=== PATIENT | female | born 1970 | race Caucasian/White ===

== ENCOUNTER 2017-05-31 16:29 | Emergency (ER) | payer OTHER ==
[~2017-05-31] VITALS: Ht 162.6 cm; Wt 101.2 kg
[2017-05-31 16:38] VITALS: BP 152/88
--- NOTE | 2017-05-31 16:48 | NUR ---
Patient ambulated to bed 12. RN evaluating patient at bedside.
--- NOTE | 2017-05-31 17:02 | NUR ---
46/F PRESENT TO ER C/O VOMITING x 2-3 MONTHS. PT STATES SHE HAD HERNIA SURGERY 3 MONTHS AGO. PT HAS N/V BUT DENIES DIARRHEA. PAIN 10/10 ACHING ON HERNIA SURGERY. PT STATES SHE HAS HX OF BIPOLAR DISORDER. AAOx4, PERRLA, BREATHING EVEN AND UNLABORED. ERMD NOTIFIED OF PATIENT STATUS.
[2017-05-31] MEDS ORDERED: PANTOPRAZOLE 40 MG INJ VIAL IVP ONE (17:40)
[2017-05-31] MEDS ORDERED: NACL 0.9% 1,000 ML IV SCH (17:40)
[2017-05-31] MEDS ORDERED: ONDANSETRON 4 MG/2 ML VIAL IVP ONE (17:40)
[2017-05-31 18:13] LABS: ANION GAP 15.5 (8-16); CARBON DIOXIDE 24.2 mmol/L (21-32); POTASSIUM 3.7 mmol/L (3.5-5.1)
[2017-05-31 18:16] LABS: BASOPHILS # (AUTO) 0.5 K/uL (0.00-0.22); EOSINOPHILS # (AUTO) 0.5 K/uL (0-0.4); HEMATOCRIT 36.1 % (36-48); HEMOGLOBIN 11.8 g/dL (12.0-16.0); LYMPHOCYTES # (AUTO) 2.6 K/uL (2.5-16.5); MEAN CORPUSCULAR HEMOGLOBIN 28 pg (27-31); MEAN CORPUSCULAR HGB CONC 33 g/dL (33-37); MEAN CORPUSCULAR VOLUME 85 fL (80-94); MONOCYTES # (AUTO) 0.5 K/uL (0.8-1.0); NEUTROPHILS # (AUTO) 6.5 K/uL (1.8-7.7); PLATELET COUNT (AUTO) 379 K/uL (140-450); RED BLOOD CELL COUNT(AUTO) 4.26 MIL/uL (4.20-5.40); RED CELL DISTRIBUTION WIDTH 15.1 % (11.6-13.7); WHITE BLOOD COUNT (AUTO) 10.6 K/uL (4.8-10.8)
[2017-05-31 18:19] LABS: ALBUMIN 3.6 g/dL (3.4-5.0); TOTAL BILIRUBIN 0.2 mg/dL (0.0-1.0)
--- NOTE | 2017-05-31 18:19 | NUR ---
Ultrasound at bedside.
[2017-05-31 18:37] LABS: APPEARANCE,URINE CLEAR (CLEAR); BILIRUBIN,URINE NEGATIVE (NEGATIVE); BLOOD, URINE NEGATIVE (NEGATIVE); COLOR,URINE YELLOW (YELLOW); LEUKOCYTE ESTERASE ,URINE NEGATIVE (NEGATIVE); NITRITE, URINE NEGATIVE (NEGATIVE); UGLUCOSE NEGATIVE (NEGATIVE)
--- NOTE | 2017-05-31 19:00 | NUR ---
ENDING TIME FOR 0.9 NS, 1000 ML IS 1900.
--- NOTE | 2017-05-31 19:06 | NUR ---
Pt report given to FEDERICO ATWOOD. Transfer of care at this time.
--- NOTE | 2017-05-31 19:14 | NUR ---
PT RESTING IN BED, VSS. DR POZO SPEAKING TO PT AT BEDSIDE.
[2017-05-31 19:42] VITALS: BP 125/72
--- NOTE | 2017-05-31 19:42 | NUR ---
Patient discharged with v/s stable. Written and verbal after care instructions given and explained. Patient alert, oriented and verbalized understanding of instructions. Ambulatory with steady gait. All questions addressed prior to discharge. ID band removed. Patient advised to follow up with PMD OR RETURN TO ER IF CONDITION WORSEN . Rx of OMEPRAZOLE,AND ZOFRAN given. Patient educated on indication of medication including possible reaction and side effects. Opportunity to ask questions provided and answered.
== END 2017-05-31 19:42 | disposition home or self-care (01) ==
LOC: MED 16:29
DX: K29.70 Gastritis, unspecified, without bleeding (principal); K80.20 Calculus of gallbladder without cholecystitis without obstruction; R03.0 Elevated blood-pressure reading, without diagnosis of hypertension; J45.909 Unspecified asthma, uncomplicated; K21.9 Gastro-esophageal reflux disease without esophagitis; F31.9 Bipolar disorder, unspecified
CPT/HCPCS: 36415; 76700; 80053; 81003; 81025; 83690; 85025; 93005; 96361; 96374; 96375; 99285; C9113; J2405; Q0092

== ENCOUNTER 2017-09-14 13:36 | Emergency (ER) | payer OTHER ==
[~2017-09-14] VITALS: Ht 165.1 cm; Wt 99.8 kg
[2017-09-14 13:57] VITALS: BP 128/84
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
[2017-09-14 15:17] VITALS: BP 132/86
--- NOTE | 2017-09-14 15:17 | NUR ---
Patient discharged with v/s stable. Written and verbal after care instructions given and explained. Patient alert, oriented and verbalized understanding of instructions. Ambulatory with steady gait. All questions addressed prior to discharge. ID band removed. Patient advised to follow up with PMD. Rx of Flonase, Ibuprofen, Amoxicillin, and Zyrtec given. Patient educated on indication of medication including possible reaction and side effects. Opportunity to ask questions provided and answered.
== END 2017-09-14 15:17 | disposition home or self-care (01) ==
LOC: MED 13:36
DX: J01.90 Acute sinusitis, unspecified (principal); J32.9 Chronic sinusitis, unspecified; R51 Headache; J45.909 Unspecified asthma, uncomplicated; K21.9 Gastro-esophageal reflux disease without esophagitis; Z88.5 Allergy status to narcotic agent
CPT/HCPCS: 99283

== ENCOUNTER 2018-09-16 12:50 | Emergency (ER) | payer OTHER ==
[~2018-09-16] VITALS: Ht 162.6 cm; Wt 89.8 kg
[2018-09-16 13:05] VITALS: BP 128/75
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
--- NOTE | 2018-09-16 14:54 | NUR ---
dr veloz at bedside
--- NOTE | 2018-09-16 15:00 | NUR ---
pt being taken to rad
--- NOTE | 2018-09-16 15:04 | NUR ---
pt back from rad
--- NOTE | 2018-09-16 16:08 | NUR ---
Patient discharged with v/s stable. Written and verbal after care instructions given and explained. Patient alert, oriented and verbalized understanding of instructions. Ambulatory with steady gait. All questions addressed prior to discharge. ID band removed. Patient advised to follow up with PMD. Rx of NAPROSYN,PREDNISONE, TESSALON PERLES given. Patient educated on indication of medication including possible reaction and side effects. Opportunity to ask questions provided and answered.
[2018-09-16 16:09] VITALS: BP 128/83
== END 2018-09-16 16:08 | disposition home or self-care (01) ==
LOC: MED 12:50
DX: J45.909 Unspecified asthma, uncomplicated (principal); R11.10 Vomiting, unspecified; I10 Essential (primary) hypertension; K21.9 Gastro-esophageal reflux disease without esophagitis; F31.9 Bipolar disorder, unspecified; Z90.89 Acquired absence of other organs; Z88.5 Allergy status to narcotic agent
CPT/HCPCS: 71046; 99283

== ENCOUNTER 2018-11-07 09:49 | Emergency (ER) | payer OTHER ==
[~2018-11-07] VITALS: Ht 163.8 cm; Wt 92.5 kg
[2018-11-07 09:53] VITALS: BP 137/69
--- NOTE | 2018-11-07 09:58 | NUR ---
Patient ambulated to bed 7. RN evaluating patient at bedside.
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
--- NOTE | 2018-11-07 10:16 | NUR ---
Dr. Brown evaluating patient at bedside.
[2018-11-07] MEDS ORDERED: KETOROLAC 60 MG/2 ML VIAL IM ONE (10:25)
[2018-11-07] MEDS ORDERED: LACTULOSE 20 GM/30 ML UDC PO ONE (10:25)
[2018-11-07 12:00] VITALS: BP 137/69
--- NOTE | 2018-11-07 12:00 | NUR ---
Patient discharged with v/s stable. Written and verbal after care instructions given and explained. Patient alert, oriented and verbalized understanding of instructions. Ambulatory with steady gait. All questions addressed prior to discharge. ID band removed. Patient advised to follow up with PMD. Rx of Colace given. Patient educated on indication of medication including possible reaction and side effects. Opportunity to ask questions provided and answered.
== END 2018-11-07 12:00 | disposition home or self-care (01) ==
LOC: MED 09:49
DX: G89.18 Other acute postprocedural pain (principal); R10.9 Unspecified abdominal pain; J45.909 Unspecified asthma, uncomplicated; K21.9 Gastro-esophageal reflux disease without esophagitis; I10 Essential (primary) hypertension; Z88.5 Allergy status to narcotic agent
CPT/HCPCS: 96372; 99283; J1885

== ENCOUNTER 2019-02-05 19:07 | Emergency (ER) | payer OTHER ==
[~2019-02-05] VITALS: Ht 162.6 cm; Wt 88.5 kg
[2019-02-05 19:20] VITALS: BP 148/80
--- NOTE | 2019-02-05 19:20 | NUR ---
PT TAKEN TO BED 4
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
--- NOTE | 2019-02-05 20:25 | NUR ---
PT TAKEN TO CT VIA [facility].
--- NOTE | 2019-02-05 20:37 | NUR ---
PT RETURN FROM CT
--- NOTE | 2019-02-05 20:40 | NUR ---
PT AMBULATED TO WITH SLOW, STEADY GAIT.
[2019-02-05] MEDS ORDERED: KETOROLAC 60 MG/2 ML VIAL IM ONE (21:15)
[2019-02-05 21:49] VITALS: BP 128/80
== END 2019-02-05 21:49 | disposition home or self-care (01) ==
LOC: MED 19:07
DX: R51 Headache (principal); M54.2 Cervicalgia; I10 Essential (primary) hypertension; K21.9 Gastro-esophageal reflux disease without esophagitis; J45.909 Unspecified asthma, uncomplicated; F31.9 Bipolar disorder, unspecified; Z88.5 Allergy status to narcotic agent
CPT/HCPCS: 70450; 96372; 99284; J1885

== ENCOUNTER 2019-08-18 16:07 | Emergency (ER) | payer OTHER ==
[~2019-08-18] VITALS: Ht 162.6 cm; Wt 92.1 kg
[2019-08-18 16:16] VITALS: BP 137/81
[2019-08-18 17:28] LABS: BASOPHILS # (AUTO) 0.1 K/uL (0.00-0.22); BASOPHILS % (AUTO) 0.4 % (0.0-2.0); EOSINOPHILS # (AUTO) 0.1 K/uL (0-0.4); EOSINOPHILS % (AUTO) 0.5 % (0.0-4.0); HEMOGLOBIN 12.9 g/dL (12.0-16.0); LYMPHOCYTES # (AUTO) 3.8 K/uL (2.5-16.5); LYMPHOCYTES % (AUTO) 24.5 % (20.5-51.1); MEAN CORPUSCULAR HEMOGLOBIN 31 pg (27-31); MEAN CORPUSCULAR HGB CONC 33 g/dL (33-37); MONOCYTES # (AUTO) 1.6 K/uL (0.8-1.0); MONOCYTES % (AUTO) 10.2 % (1.7-9.3); NEUTROPHILS # (AUTO) 10.1 K/uL (1.8-7.7); NEUTROPHILS % (AUTO) 64.4 % (42.2-75.2); PLATELET COUNT (AUTO) 374 K/uL (140-450); RED BLOOD CELL COUNT(AUTO) 4.14 MIL/uL (4.20-5.40); RED CELL DISTRIBUTION WIDTH 14.3 % (11.6-13.7); WHITE BLOOD COUNT (AUTO) 15.6 K/uL (4.8-10.8)
[2019-08-18 17:28] LABS: APPEARANCE,URINE CLEAR (CLEAR); BILIRUBIN,URINE NEGATIVE (NEGATIVE); BLOOD, URINE NEGATIVE (NEGATIVE); COLOR,URINE YELLOW (YELLOW); LEUKOCYTE ESTERASE ,URINE NEGATIVE (NEGATIVE); NITRITE, URINE NEGATIVE (NEGATIVE); PH,URINE 6.5 (5.0-9.0); UGLUCOSE NEGATIVE (NEGATIVE)
[2019-08-18 17:46] LABS: ALBUMIN 3.8 g/dL (3.4-5.0); ANION GAP 11.8 (8-16); CARBON DIOXIDE 26.9 mmol/L (21-32); CREATININE 0.9 mg/dL (0.6-1.3); POTASSIUM 3.7 mmol/L (3.5-5.1); TOTAL BILIRUBIN 0.2 mg/dL (0.0-1.0)
[2019-08-18 19:00] VITALS: BP 138/74
--- NOTE | 2019-08-18 19:01 | NUR ---
Stable. VSS. Afebrile. Denies pain MD has reassessed and Dc'd home. To exit.
== END 2019-08-18 19:00 | disposition home or self-care (01) ==
LOC: MED 16:07
DX: N30.90 Cystitis, unspecified without hematuria (principal); M54.9 Dorsalgia, unspecified; R05 Cough; J45.909 Unspecified asthma, uncomplicated; K21.9 Gastro-esophageal reflux disease without esophagitis; I10 Essential (primary) hypertension; Z98.890 Other specified postprocedural states; Z88.5 Allergy status to narcotic agent
CPT/HCPCS: 36415; 80053; 81003; 85025; 99284

== ENCOUNTER 2020-05-15 19:46 | Emergency (ER) | payer OTHER ==
[~2020-05-15] VITALS: Ht 162.6 cm; Wt 90.3 kg
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
[2020-05-15 19:47] VITALS: BP 127/72
--- NOTE | 2020-05-15 19:47 | NUR ---
1935 --- MALATHI, PT TAKEN TO ER BED 11
--- NOTE | 2020-05-15 20:02 | NUR ---
ERMD AT BEDSIDE FOR MEDICAL EVALUATION.
--- NOTE | 2020-05-15 20:40 | NUR ---
Female Lean Specialist accompanied female patient for pelvic exam performed by VERO Olson.
--- NOTE | 2020-05-15 21:36 | NUR ---
Pt called her sister Jenae and left a message for her to pick her up from the hospital.
--- NOTE | 2020-05-15 21:41 | NUR ---
Pt on the phone with sister, to come pick her up from the hospital.
[2020-05-15 21:53] VITALS: BP 130/84
--- NOTE | 2020-05-15 21:53 | NUR ---
Patient discharged with v/s stable. Written and verbal after care instructions given and explained. Patient verbalized understanding. Ambulatory with steady gait. All questions addressed prior to discharge. Advised to follow up with PMD.
== END 2020-05-15 21:53 | disposition home or self-care (01) ==
LOC: MED 19:46
DX: F41.9 Anxiety disorder, unspecified (principal); R10.2 Pelvic and perineal pain; J45.909 Unspecified asthma, uncomplicated; F25.0 Schizoaffective disorder, bipolar type; Z88.5 Allergy status to narcotic agent
CPT/HCPCS: 93005; 99283; 99284

== ENCOUNTER 2021-07-30 16:26 | Emergency (ER) | payer OTHER ==
[~2021-07-30] VITALS: Ht 162.6 cm; Wt 90.7 kg
[2021-07-30 16:40] VITALS: BP 130/83
[2021-07-30] MEDS ORDERED: [UNRECOGNIZED DRUG - OTHER] (18:20)
[2021-07-30] MEDS ORDERED: GUAI-646 PO (18:20)
--- NOTE | 2021-07-30 19:43 | NUR ---
drake serna collected and handed to greenhouse laborer bedside
--- NOTE | 2021-07-30 19:44 | NUR ---
Patient discharged with v/s stable. Written and verbal after care instructions given and explained. Patient alert, oriented and verbalized understanding of instructions. Ambulatory with steady gait. All questions addressed prior to discharge. ID band removed. Patient advised to follow up with PMD. Rx of mucinex given. Patient educated on indication of medication including possible reaction and side effects. Opportunity to ask questions provided and answered.
== END 2021-07-30 19:44 | disposition home or self-care (01) ==
LOC: MED 16:26
DX: B34.9 Viral infection, unspecified (principal); Z20.822 Contact with and (suspected) exposure to COVID-19; J45.909 Unspecified asthma, uncomplicated; Z79.899 Other long term (current) drug therapy
CPT/HCPCS: 71045; 99284; U0003

== ENCOUNTER 2022-01-08 07:13 | Emergency (ER) | payer OTHER ==
[~2022-01-08] VITALS: Ht 165.1 cm; Wt 103.4 kg
[~2022-01-08 07:13] MED LIST: MUC600 PO; [UNRECOGNIZED DRUG - OTHER]
[2022-01-08 07:24] VITALS: BP 125/75
--- NOTE | 2022-01-08 07:31 | NUR ---
PT AMBULATED TO BED 11, STEADY GAIT WITH USE OF A CANE.
[2022-01-08] MEDS ORDERED: KETOROLAC 30 MG/ML VIAL IM ONE (08:00)
[2022-01-08] MEDS ORDERED: ROB PO (08:00)
--- NOTE | 2022-01-08 08:04 | NUR ---
pt c/o back pain x3 days, denies injury or trauma. also c/o dry cough. breathing unlabored. speaking in complete sentences.
--- NOTE | 2022-01-08 08:31 | NUR ---
Patient discharged with v/s stable. Written and verbal after care instructions given and explained. Patient alert, oriented and verbalized understanding of instructions. Ambulatory with steady gait. All questions addressed prior to discharge. ID band removed. Patient advised to follow up with PMD. Rx of robutussin given. Patient educated on indication of medication including possible reaction and side effects. Opportunity to ask questions provided and answered.
== END 2022-01-08 08:32 | disposition home or self-care (01) ==
LOC: MED 07:13
DX: B34.9 Viral infection, unspecified (principal); Z20.822 Contact with and (suspected) exposure to COVID-19; M54.50 Low back pain, unspecified; I10 Essential (primary) hypertension; E78.5 Hyperlipidemia, unspecified
CPT/HCPCS: 87635; 96372; 99283; C9803; J1885

== ENCOUNTER 2023-01-17 10:00 | Emergency (ER) | payer MEDICARE, MEDICAID ==
[~2023-01-17] VITALS: Ht 162.6 cm; Wt 89.4 kg
[~2023-01-17 10:00] MED LIST changes: +ROB PO
[2023-01-17 10:16] VITALS: BP 126/76; PULSE 82; RESP 20; TEMP 97.8; O2SAT 99
[2023-01-17] MEDS ORDERED: KETOROLAC 30 MG/ML VIAL IM ONE (10:55)
--- NOTE | 2023-01-17 11:43 | NUR ---
PT AMB TO BED 3
--- NOTE | 2023-01-17 11:55 | NUR ---
Female Street And Building Decorator accompanied female patient for BREAST Exam.
[2023-01-17 11:56] VITALS: O2SAT 99
[2023-01-17] MEDS ORDERED: IBUP-2213 PO (12:08)
[2023-01-17] MEDS ORDERED: CYCL-711 PO (12:08)
[2023-01-17] MEDS ORDERED: LID5T TP (12:08)
[2023-01-17] MEDS ORDERED: HYDR28CR38 TP (12:10)
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
[2023-01-17 12:29] VITALS: BP 125/76; PULSE 80; RESP 20; TEMP 98; O2SAT 100
--- NOTE | 2023-01-17 12:30 | NUR ---
The patient's care was reviewed and supervised by Roselyn Reyes, RN, RN.
== END 2023-01-17 12:28 | disposition home or self-care (01) ==
LOC: MED 10:00
DX: S29.011A Strain of muscle and tendon of front wall of thorax, initial encounter (principal); R03.0 Elevated blood-pressure reading, without diagnosis of hypertension; J45.909 Unspecified asthma, uncomplicated; Z79.899 Other long term (current) drug therapy; X58.XXXA Exposure to other specified factors, initial encounter; Y93.89 Activity, other specified; Y92.89 Other specified places as the place of occurrence of the external cause; Y99.8 Other external cause status
CPT/HCPCS: 71101; 81002; 81025; 96372; 99283; J1885

== ENCOUNTER 2023-02-06 07:15 | Emergency (ER) | payer MEDICARE, MEDICAID ==
[~2023-02-06] VITALS: Ht 162.6 cm; Wt 89.4 kg
[~2023-02-06 07:15] MED LIST changes: +CYCL-711 PO; +HYDR28CR38 TP; +IBUP-2213 PO; +LID5T TP
[2023-02-06 07:47] VITALS: BP 122/72; PULSE 77; RESP 20; TEMP 98; O2SAT 99
--- NOTE | 2023-02-06 07:57 | NUR ---
TO ER BED 5
--- NOTE | 2023-02-06 08:03 | NUR ---
Patient being evaluated by physician at bedside.
[2023-02-06] MEDS ORDERED: KETOROLAC 30 MG/ML VIAL IM ONE (08:10)
--- NOTE | 2023-02-06 08:47 | NUR ---
Patient being taken to X-Ray via imaging.
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
--- NOTE | 2023-02-06 09:11 | NUR ---
Patient returned from imaging.
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
[2023-02-06] MEDS ORDERED: IBUP-2213 PO (09:35)
--- NOTE | 2023-02-06 09:45 | NUR ---
The patient's care was reviewed and supervised by THOMPSON CRENSHAW RN.
--- NOTE | 2023-02-06 09:54 | NUR ---
Patient discharged with v/s stable. Written and verbal after care instructions given and explained. Patient alert, oriented and verbalized understanding of instructions. Ambulatory with steady gait. All questions addressed prior to discharge. ID band removed. Patient advised to follow up with PMD. Rx of IBUPROFEN given. Opportunity to ask questions provided and answered.
== END 2023-02-06 09:54 | disposition home or self-care (01) ==
LOC: MED 07:15
DX: S39.012A Strain of muscle, fascia and tendon of lower back, initial encounter (principal); M25.551 Pain in right hip; J45.909 Unspecified asthma, uncomplicated; Z88.5 Allergy status to narcotic agent; Z88.8 Allergy status to other drugs, medicaments and biological substances; Z79.899 Other long term (current) drug therapy; X58.XXXA Exposure to other specified factors, initial encounter; Y93.89 Activity, other specified; Y92.89 Other specified places as the place of occurrence of the external cause; Y99.8 Other external cause status
CPT/HCPCS: 72170; 72220; 96372; 99284; J1885

== ENCOUNTER 2023-02-25 15:53 | Emergency (ER) | payer MEDICARE, MEDICAID ==
[~2023-02-25] VITALS: Ht 165.1 cm; Wt 89.4 kg
[2023-02-25 16:02] VITALS: BP 119/79; PULSE 101; RESP 18; TEMP 98.9; O2SAT 99
[2023-02-25] MEDS: KETOROLAC 30 MG/ML VIAL IM ONE (17:40)
[2023-02-25] MEDS: ACETAMINOPHEN EXTRA STRENGTH 500 MG TAB PO ONE (17:40)
[2023-02-25] MEDS ORDERED: ACET-8905 PO (19:23)
== END 2023-02-25 19:40 | disposition home or self-care (01) ==
LOC: MED 15:53
DX: S92.511A Displaced fracture of proximal phalanx of right lesser toe(s), initial encounter for closed fracture (principal); J45.909 Unspecified asthma, uncomplicated; Z79.899 Other long term (current) drug therapy; Z79.1 Long term (current) use of non-steroidal anti-inflammatories (NSAID); Z88.8 Allergy status to other drugs, medicaments and biological substances; Z88.5 Allergy status to narcotic agent; W22.8XXA Striking against or struck by other objects, initial encounter; Y92.009 Unspecified place in unspecified non-institutional (private) residence as the place of occurrence of the external cause; Y93.01 Activity, walking, marching and hiking; Y99.8 Other external cause status
CPT/HCPCS: 73660; 96372; 99283; J1885

== ENCOUNTER 2023-03-02 13:40 | Emergency (ER) | payer MEDICARE, MEDICAID ==
[~2023-03-02] VITALS: Ht 170.2 cm; Wt 83.9 kg
[~2023-03-02 13:40] MED LIST changes: +ACET-8905 PO
[2023-03-02 13:53] VITALS: BP 132/89; PULSE 98; RESP 17; TEMP 97.4; O2SAT 98
[2023-03-02] MEDS ORDERED: ACYC400T14 PO (16:18)
[2023-03-02] MEDS ORDERED: KETO2CRE3 TP (16:18)
[2023-03-02 16:56] LABS: APPEARANCE,URINE CLEAR (CLEAR); BILIRUBIN,URINE NEGATIVE (NEGATIVE); BLOOD, URINE NEGATIVE (NEGATIVE); COLOR,URINE YELLOW (YELLOW); LEUKOCYTE ESTERASE ,URINE NEGATIVE (NEGATIVE); NITRITE, URINE NEGATIVE (NEGATIVE); PROTEIN,URINE NEGATIVE (NEGATIVE); UGLUCOSE NEGATIVE (NEGATIVE); UROBILINOGEN,URINE 0.2 EU/dL (0.2 - 1)
== END 2023-03-02 16:50 | disposition home or self-care (01) ==
LOC: MED 13:40
DX: R10.2 Pelvic and perineal pain (principal); J45.909 Unspecified asthma, uncomplicated; Z79.899 Other long term (current) drug therapy; Z88.5 Allergy status to narcotic agent; Z88.8 Allergy status to other drugs, medicaments and biological substances
CPT/HCPCS: 81003; 87491; 99283

== ENCOUNTER 2023-03-06 18:15 | Emergency (ER) | payer MEDICARE, MEDICAID ==
[~2023-03-06] VITALS: Ht 162.6 cm; Wt 88.9 kg
[~2023-03-06 18:15] MED LIST changes: +ACYC400T14 PO; +KETO2CRE3 TP
[2023-03-06 18:39] VITALS: BP 108/62; PULSE 107; RESP 18; TEMP 97.7; O2SAT 98
[2023-03-06] MEDS ORDERED: KETOROLAC 60 MG/2 ML VIAL IM ONE (19:30)
[2023-03-06 20:06] VITALS: TEMP 97.7
[2023-03-06] MEDS ORDERED: ACYC400T14 PO (22:34)
[2023-03-06 23:15] VITALS: BP 117/81; PULSE 82; RESP 18; O2SAT 97
== END 2023-03-06 23:18 | disposition home or self-care (01) ==
LOC: MED 18:15
DX: M79.674 Pain in right toe(s) (principal); J45.909 Unspecified asthma, uncomplicated; Z69.11 Encounter for mental health services for victim of spousal or partner abuse; Z88.5 Allergy status to narcotic agent; Z88.8 Allergy status to other drugs, medicaments and biological substances; Z79.899 Other long term (current) drug therapy
CPT/HCPCS: 70450; 71045; 73562; 96372; 99285; J1885

== ENCOUNTER 2023-03-18 07:41 | Emergency (ER) | payer MEDICARE, MEDICAID ==
[~2023-03-18] VITALS: Ht 162.6 cm; Wt 93.0 kg
[2023-03-18 07:51] VITALS: BP 142/85; PULSE 88; RESP 18; TEMP 98.1; O2SAT 98
[2023-03-18] MEDS ORDERED: PALI1.5T PO (07:59)
[2023-03-18] MEDS ORDERED: DIVA250T PO (07:59)
[2023-03-18 08:26] VITALS: O2SAT 98
[2023-03-18 09:17] LABS: APPEARANCE,URINE CLEAR (CLEAR); BILIRUBIN,URINE NEGATIVE (NEGATIVE); BLOOD, URINE NEGATIVE (NEGATIVE); COLOR,URINE YELLOW (YELLOW); LEUKOCYTE ESTERASE ,URINE NEGATIVE (NEGATIVE); NITRITE, URINE NEGATIVE (NEGATIVE); PROTEIN,URINE NEGATIVE (NEGATIVE); UGLUCOSE NEGATIVE (NEGATIVE); UROBILINOGEN,URINE 0.2 EU/dL (0.2 - 1)
[2023-03-18 09:41] LABS: HIV RAPID SCREEN NON-REACTIVE (NON REACTIV)
[2023-03-18] MEDS ORDERED: cefTRIAXone 500 MG in LIDOCAINE MPF 1% 1 ML IM ONE (10:00)
[2023-03-18] MEDS ORDERED: LIDOCAINE MPF 1% 5 ML ONE (10:51)
[2023-03-18] MEDS ORDERED: cefTRIAXone 500 MG VIAL ONE (10:51)
[2023-03-18 11:00] VITALS: BP 142/85; PULSE 88; RESP 18; TEMP 98.1; O2SAT 98
== END 2023-03-18 11:00 | disposition home or self-care (01) ==
LOC: MED 07:41
DX: U07.1 COVID-19 (principal); F41.9 Anxiety disorder, unspecified; J45.909 Unspecified asthma, uncomplicated; Z88.5 Allergy status to narcotic agent; Z88.8 Allergy status to other drugs, medicaments and biological substances; Z79.899 Other long term (current) drug therapy
CPT/HCPCS: 36415; 81003; 81025; 86592; 86703; 87426; 87491; 96372; 99283; J0696; J2001; 99284